=== PATIENT | female | born 1985 | race African-American/Black ===

== ENCOUNTER 2022-04-26 17:24 | Emergency (ER) | payer MEDICAID ==
[~2022-04-26] VITALS: Ht 167.6 cm; Wt 89.0 kg
[2022-04-26 17:30] VITALS: BP 124/90
[2022-04-26] MEDS ORDERED: TOPUD MT (19:26)
== END 2022-04-26 19:41 | disposition home or self-care (01) ==
LOC: ER 17:24
DX: M79.632 Pain in left forearm (principal)
CPT/HCPCS: 73090; 99283